=== PATIENT | female | born 1945 | race Caucasian/White ===

== ENCOUNTER 2019-02-16 05:15 | Emergency (ER) | payer MEDICARE, OTHER ==
[~2019-02-16] VITALS: Ht 165.1 cm; Wt 106.0 kg
[2019-02-16] MEDS ORDERED: HYDROcodone/APAP 5/325 TABLET ONE (05:56)
[2019-02-16] MEDS ORDERED: HYDROcodone/APAP 5/325 TABLET PO ONE (06:00)
[2019-02-16 07:30] VITALS: BP 126/64
--- NOTE | 2019-02-16 07:30 | NUR ---
LATE ENTRY: PT WITH AT BEDSIDE, PT STATES PAIN IS 3/10 DOWN FROM 10/10 IN BACK S/P [facility]CO. PT WITH NAD, NO OTHER NEEDS AT THIS TIME
--- NOTE | 2019-02-16 09:23 | NUR ---
LATE ENTRY FOR 0800 Patient/Caregiver given discharge instructions and they have confirmed that they understand the instructions. Patient ambulatory with steady gait.
== END 2019-02-16 09:24 | disposition home or self-care (01) ==
LOC: ED 05:34
DX: S39.012A Strain of muscle, fascia and tendon of lower back, initial encounter (principal); S33.5XXA Sprain of ligaments of lumbar spine, initial encounter; W01.0XXA Fall on same level from slipping, tripping and stumbling without subsequent striking against object, initial encounter; Y93.89 Activity, other specified; Y92.89 Other specified places as the place of occurrence of the external cause; Y99.8 Other external cause status
CPT/HCPCS: 72131; 99284